=== PATIENT | male | born 1945 | race Caucasian/White ===

== ENCOUNTER 2017-07-16 21:07 | Inpatient (IN) | payer MEDICARE ==
[~2017-07-16 21:07] MED LIST: ISOVUE-370 76%-LOCM 1 ML ONE
[2017-07-16 22:08] LABS: Bilirubin Negative (Negative); Glucose, Urine (Dipstick) Negative (Negative); Ketone, Urine Negative (Negative); Nitrite Negative (Negative); Protein, Urine (Dipstick) > or equal to 300 mg/dL (Neg-Trace); Urobilinogen 0.2 mg/dL (0.2-1.0)
[2017-07-16 22:09] LABS: Blood, Urine Large (Negative)
[2017-07-16 22:18] LABS: #Eosinphils 0.1 thou/uL (0.0-0.7); #Monocytes 0.5 thou/uL (0.11-0.59); #Neutrophils 10.4 thou/uL (1.40-6.50); %Basophils 0.2 % (0.0-1.0); %Eosinophils 1.2 % (0.0-10.0); %Lymphocytes 8.4 % (21.0-51.0); %Monocytes 3.8 % (0.0-10.0); Hematocrit 41.4 % (42.0-52.0); Red Blood Cell (RBC) Count 4.36 mill/uL (4.70-6.10)
[2017-07-16 22:19] LABS: Bacteria/HPF None Seen HPF (None Seen); RBC/HPF GREATER THAN 50-TNTC HPF (0-3); Squamous Epithelial 0-3 HPF (0-3); WBC/HPF 0-3 HPF (0-3)
[2017-07-16 22:20] LABS: Hyaline Casts/LPF NONE SEEN LPF (0-3 Hyaline)
[2017-07-16 22:57] LABS: Anion Gap 14 mmol/L (10-20); BUN (Urea Nitrogen) 16 mg/dL (8.4-25.7); Calc. Creatinine Clearance 0 mL/min (70-130); Calcium 8.8 mg/dL (7.8-10.44); Carbon Dioxide 21 mmol/L (23-31); Chloride 104 mmol/L (98-107); Estimated GFR-MDRD 54
--- NOTE | 2017-07-16 23:30 | CT ---
CT ABDOMEN AND PELVIS WITH IV CONTRAST 07/16/17 HISTORY: Hematuria. FINDINGS: The lung bases are clear. The spleen is upper limits of normal in size. Gas containing stones are pre sent within the gallbladder lumen. There is calcification within the arterial structures. Fusiform ec hari of the lower abdominal aorta measures up to 2.7 cm AP diameter. Fat protrudes into each inguinal canal. A nonobstructive loop of sigmoid colon extends into the left inguinal canal. Urinary bladder contains a large amount of hyperdense material and a Paz catheter b alloon. IMPRESSION: 1. Hyperdense material within the urinary bladder lumen is likely related to hemorrhagic. Cause is not evident. Please consider urologic consultation. 2. Cholelithiasis. 3. Left inguinal hernia contains nonobstructed colon. 4. Atherosclerosis with fusiform ectasia of the lower abdominal aorta. POS: MENDEZ
[2017-07-17 00:47] LABS: Prothrombin Time 13.4 SEC (12.0-14.7)
[2017-07-17 00:48] LABS: PTT 33.3 SEC (22.9-36.1)
[2017-07-17] MEDS ORDERED: Acetaminophen 325 MG TAB PO PRN (03:36)
[2017-07-17] MEDS ORDERED: Ondansetron HCl/PF 4 MG/2 ML Vial IVP PRN ×2 (03:36→21:30)
[2017-07-17] MEDS ORDERED: Ondansetron ODT 4 MG TAB SL PRN (03:36)
[2017-07-17] MEDS ORDERED: Labetalol HCl 100 MG/20 ML VIAL SLOW IVP PRN (03:48)
[2017-07-17] MEDS ORDERED: Nitroglycerin 0.4 MG TAB (25 Tab Bottle) SL PRN (03:48)
[2017-07-17] MEDS ORDERED: hydrALAZINE 20 MG/ML VIAL SLOW IVP PRN (03:48)
[2017-07-17 05:01] VITALS: BMI 23.8
--- NOTE | 2017-07-17 07:51 | RAD ---
EXAM: ONE VIEW CHEST: COMPARISON: 12/14/16. HISTORY: Hypertensive urgency. FINDINGS: Normal cardiac silhouette. Pulmonary vessels and hilum are normal. Costophrenic angles are clear. No consolidation or mass. No pneumothorax or osseous abnormalities. IMPRESSION: No acute cardiopulmonary process. POS: MENDEZ
[2017-07-17] MEDS: Metoprolol Tartrate 25 MG TAB PO SCH (08:16)
[2017-07-17] MEDS: Lisinopril 20 MG TAB PO SCH (08:16)
[2017-07-17] MEDS: Nicotine 21 MG PATCH TD SCH (08:16)
[2017-07-17] MEDS: NIFEdipine XL 60 MG TAB PO SCH (08:16)
--- NOTE | 2017-07-17 09:38 | HP-2 ---
DATE OF ADMISSION: 07/17/2017 PRIMARY CARE PHYSICIAN: None. ATTENDING: Dr. Zendejas. RESIDENT: Dr. Orellana. HISTORIAN: Self. CHIEF COMPLAINT: Blood in urine. HISTORY OF PRESENT ILLNESS: A 71-year-old male with past medical history of coronary artery disease, hypertension, and hyperlipidemia, who presented to the ED because he was at work driving a truck and after work went to the bathroom and a lot of blood came out in his urine. It was not painful and he did not have to strain. He has never had blood in his urine before. He had no trauma to his penis, scrotum, or urethra. He has had no abdominal pain or back pain. No fevers or chills. No history o f kidney disease. When he got to the emergency room, he started having difficulty urinating and they put a Paz in and put out about 400 mL of urine that was grossly bloody with clots in it. EMS gave him 10 mg of labetalol for elevated blood pressures. PAST MEDICAL HISTORY: 1. Coronary artery disease, status post NSTEMI in 11/2016. 2. Hypertension. 3. Hyperlipidemia. PAST SURGICAL HISTORY: Cardiac catheterization, 11/2016. ALLERGIES: No known drug allergies. MEDICATIONS: Aspirin 81 mg daily. FAMILY HISTORY: Dad, coronary artery disease. SOCIAL HISTORY: He smokes cigarettes 1 pack per day for 30 years. Denies alcohol or drug use. REVIEW OF SYSTEMS: General: Denies fever, chills, weight changes. Eyes: Denies vision changes or eye pain. ENT: Denies rhinorrhea or sore throat. Respiratory: Positive for cough. Negative for s hortness of breath. Cardiovascular: Negative for chest pain or edema. GI: Negative for nausea, vo miting, constipation, abdominal pain. Genitourinary: Negative for incontinence, dysuria, polyuria. Skin: Negative for rashes or lesions. Musculoskeletal: Negative for pain or tenderness. Neurolog ic: Negative for weakness or numbness. Psychiatric: Negative for anxiety or depression. PHYSICAL EXAMINATION: VITAL SIGNS: Blood pressure 203/81, at its highest it was 259/102; pulse 65; respiratory rate 16; te mperature 97.7; pulse ox 97% on room air. Current weight 63.5 kilograms. GENERAL: Alert, oriented x3, in no acute distress. Thin, appropriately interactive. HEENT: Pupils equal, round, reactive to light. Extraocular muscles intact. Conjunctivae within nor mal limits. ENT: Nasal mucosa within normal limits. Extremely poor dentition with extensive dental caries. NECK: Supple, no lymphadenopathy. CARDIAC: Regular rate and rhythm. No murmurs, gallops. A 2+ radial and pedal pulses. LUNGS: Normal effort, no retractions, clear to auscultation bilaterally. SKIN: Warm, dry. No cyanosis or lesions. ABDOMEN: Soft, mildly tender to palpation in the suprapubic and right upper quadrant. No guarding o r rebound. Normoactive bowel sounds. No mass or distention. EXTREMITIES: No clubbing, cyanosis, or edema. MUSCULOSKELETAL: Structure, tone within normal limits, 5/5 muscle strength. Full range of motion. NEUROLOGICAL: No focal deficits. Sensation within normal limits. GCS 15. PSYCHIATRIC: Appropriate. LABORATORY DATA: WBC 12, hemoglobin 13.8, hematocrit 41.4, platelets 397, MCV 95. Sodium 135, potas sium 3.5, chloride 104, CO2 of 21, BUN 16, creatinine 1.3, GFR 54, glucose 187, calcium 8.8. Urinaly sis showed large blood, greater than 300 protein and red blood cells are too numerous to count. IMAGING: Abdomen and pelvis CT showed urinary bladder that contains a large amount of material that is likely hemorrhagic, cholelithiasis, left inguinal hernia, contains nonobstructive colon, atheroscl erosis of the abdominal aorta. ASSESSMENT AND PLAN: This is a 71-year-old male, who presents with: 1. Gross hematuria, unsure of the cause, but concerns for malignancy. We will continue Paz. We w ill consult Urology. 2. Hypertensive urgency. The patient has labile blood pressures. Most elevated blood pressure was 259/102. We will restart medications. After his rla-KE-qdhyhkeod myocardial infarction, we will giv e hydralazine, labetalol as needed to keep blood pressures less than 180 systolic. We will monitor o n telemetry. We will get a repeat EKG and we will get a chest x-ray. 3. Hyperglycemia. No diagnosis of diabetes. We will check fasting glucose in the a.m., and if elev ated, we will check A1c. 4. Leukocytosis, mild, could be reactive. We will monitor. 5. Normocytic anemia, likely secondary to blood loss. We will monitor with a.m. CBC. We will keep Paz in place. We will monitor urine output. Recheck sooner if concern for amount of bleeding. Th e patient asymptomatic currently. 6. Coronary artery disease. We will hold aspirin, as patient is currently bleeding. 7. Hypertension. We will restart medications from prior admission. 8. Hyperlipidemia. We will restart medications from prior admission. 9. Chronic kidney disease, stage 3. We will monitor. 10. Tobacco abuse. Nicoderm patch and counseling. 11. Lost to followup. We will consult case management to help find PCP for outpatient followup. 12. Venous thromboembolism prophylaxis, sequential compression devices, as the patient is bleeding. DISPOSITION: Admit to telemetry. Symptomatic medication will be provided. History and physical exam as well as management discussed with Dr. Zendejas.
--- NOTE | 2017-07-17 11:27 | PDOC.EVN ---
Attending Addendum - Attending Addendum I personally evaluated the patient and discussed the management with Dr. Orellana. I agree with the History, Examination, Assessment and Plan documented in her H& P with any addition or exceptions noted below. Patient with no known history of bladder or system issues presenting with munir hematuria with urination that has progressed even with de la torre catheter insertion. He is on no medications that would delay or impair clotting such as ASA or OAC. He does have an extensive smoking history and certainly a malignancy is a concern due to the painless nature of the issue. His kidneys appear normal on CT and there are no RBC casts in urine to suggest a nephritic syndrome or other kidney related issue. Will consult Urology for likely bladder irrigation and cystoscopy. His blood counts are currently stable but will need monitoring more frequently if he continues to pass blood in de la torre catheter. Patient also supposed to be on anti-HTN regimen outpatient that he has not been taking. His BP is improved on those medications, but they will need titrating prior to discharge. Await further recs from urology.
[2017-07-17] MEDS ORDERED: Ibuprofen 600 MG TAB PO PRN (17:08)
--- NOTE | 2017-07-17 17:12 | EKG ---
Test Reason : Blood Pressure : / mmHG Vent. Rate : 056 BPM Atrial Rate : 056 BPM P-R Int : 138 ms QRS Dur : 086 ms QT Int : 452 ms P-R-T Axes : 055 -32 -79 degrees QTc Int : 436 ms Sinus bradycardia Left axis deviation Abnormal ECG When compared with ECG of 16-JUL-2017 21:12, (Unconfirmed) Sinus rhythm has replaced Junctional rhythm T wave inversion now evident in Anterior leads Confirmed by MELLISA VIDES, DR. Lees ([id number]) on 07/17/2017 5:11:32 PM Referred By: MENG Confirmed By:DR. Nabeel PAK MD
[2017-07-17] MEDS: Acetaminophen 325 MG TAB PO PRN (17:41)
[2017-07-17] MEDS ORDERED: Atorvastatin Calcium 40 MG TAB PO SCH (21:00)
[2017-07-17] MEDS ORDERED: Fentanyl 100 MCG/2 ML VIAL ONE ×4 (21:12→23:27)
[2017-07-17] MEDS ORDERED: Propofol 200 MG/20 ML VIAL ONE (21:24)
[2017-07-17] MEDS ORDERED: Lidocaine 1% PF 5 ML VIAL ONE (21:24)
[2017-07-17] MEDS ORDERED: PHENYLEPHRINE-NS 100 MCG/ML 10 ML SYRINGE ONE (21:24)
[2017-07-17] MEDS ORDERED: ePHEDrine/0.9% NaCl/PF SYRINGE 50 mg/10 ml ONE (21:24)
[2017-07-18] MEDS: NIFEdipine XL 60 MG TAB PO SCH ×2 (00:04→09:50)
[2017-07-18] MEDS: Lisinopril 20 MG TAB PO SCH ×2 (00:05→09:50)
[2017-07-18] MEDS: Metoprolol Tartrate 25 MG TAB PO SCH ×2 (00:05→09:50)
--- NOTE | 2017-07-18 00:26 | CON ---
DATE OF CONSULTATION: 07/17/2017 REASON FOR CONSULTATION: Gross hematuria. HISTORY OF PRESENT ILLNESS: Mr. Holley is a 71-year-old gentleman who presented to the hospital with acute onset of gross hematuria. It was painless. He was seen in the emergency room and a catheter w as placed. He had dark red urine draining. He has no prior history of hematuria. He does have some daytime urinary frequency, but denies any history of dysuria. He has no prior urologic history. He was recently in the hospital in 11/2016 at [facility] for a non-ST elevation NE. He was maximized on medical therapy. He also has a history of hypertension, but he has not bee n taking his antihypertensive medications. PAST MEDICAL HISTORY: Hypertension, myocardial infarction, hyperlipidemia. PAST SURGICAL HISTORY: Cardiac catheterization, 12/16; appendectomy many years ago. ALLERGIES: No known drug allergies. MEDICATIONS: Taken at this time, aspirin. He was also supposed to be taking some antihypertensives, which he has not been taking. FAMILY HISTORY: Significant for coronary artery disease in his father. SOCIAL HISTORY: He denies alcohol or drug use. He does smoke 1 pack of cigarettes per day. He is m arried, but his and his daughter were with him. REVIEW OF SYSTEMS: Respiratory: Denies any shortness of breath. Cardiovascular: Denies chest pain or palpitations. G astrointestinal: Denies chronic constipation or diarrhea. Genitourinary: Please see history of pre sent illness. Musculoskeletal: Negative for pain or tenderness. Neurologic: Negative for weakness or numbness. Psychiatric: Negative for anxiety or depression. PHYSICAL EXAMINATION: GENERAL: He is awake and alert. He is in no distress at this time. VITAL SIGNS: Most recent vitals, temperature 97.5, pulse 70, blood pressure 159/72, respiratory rate 17, O2 saturation 96%. HEENT: Normocephalic, atraumatic. NECK: Supple, without masses. CHEST: Clear to auscultation. CARDIOVASCULAR: No murmurs. ABDOMEN: Soft, nontender, no palpable masses. Liver and spleen are not palpable. No abdominal tend erness noted. GENITOURINARY: He has a Paz catheter in place. Scrotum normal. Testicles palpably normal. EXTREMITIES: No edema. Hand irrigation of Paz catheter was performed. He did not tolerate this well secondary to bladder spasm. Clots were obtained but could not be cleared. CT scan on 07/16/2017 demonstrates bilateral inguinal hernias, no renal masses noted and density in t he bladder consistent with clot and/or tumor. LABORATORY DATA: Hemoglobin 13.8, hematocrit 41.1, platelet count 397. Sodium 135, potassium 3.5, c hloride 104, CO2 of 21, BUN 16, creatinine 1.3, glucose 197, calcium 8.8. Urinalysis: No bacteria s een. Large amount of blood. IMPRESSION: Mr. Holley is a 71-year-old gentleman with urinary clot retention. He has a long history of smoking. I was unable to clear his bladder by hand irrigation. In addition, this is quite uncom fortable for him and poorly tolerated. I recommended cystoscopic evaluation with clot evacuation and possible transurethral resection bladder tumor. The procedure, potential complications, limitations , alternatives have been discussed with him, his , and his daughter. They understand the risks a nd potential complications and wishes to proceed. PLAN: Cystoscopy, clot evacuation, possible TURBT.
--- NOTE | 2017-07-18 04:23 | OP ---
DATE OF PROCEDURE: 07/17/2017 PREOPERATIVE DIAGNOSIS: Gross hematuria, clot retention. POSTOPERATIVE DIAGNOSIS: Gross hematuria, clot retention. PROCEDURE: Cystoscopy, clot evacuation, TURP. SURGEON: Dr. Brad Napier ANESTHESIA: General. INDICATIONS: Mr. Holley is a 71-year-old gentleman who presented to the emergency room with acute ons et of gross hematuria. He developed clot retention. Attempts were made to clear the bladder with suárez nd irrigation and this was unsuccessful. He was therefore brought to the operating room for further evaluation and management. DETAILS OF PROCEDURE: The patient was given general anesthesia and IV antibiotics. He was sterilely prepped and draped in lithotomy position. The anterior urethra was dilated with sequential sounds a nd cystoscope was passed into the bladder. Cystoscopy demonstrated a large amount of organized clot. It was irrigated from the bladder with the Ellik evacuator. Repeat cystoscopy after clot evacuatio n revealed no evidence of bladder tumor. There was an enlarged median lobe with irregularity of the mucosa consistent with benign prostatic hypertrophy versus transitional cell carcinoma. Transurethra l resection of this portion of the prostate was performed. Hemostasis was obtained. Specimen was se nt for pathologic evaluation. The bladder was examined and there is no evidence of injury to the ure teral orifices. There was no residual prostate chips left. There was no blood seen coming from eith er the right or the left ureteral orifice. It appears the bleeding was most likely from the prostate, the tissue has been sent for pathologic ev aluation. I plan to leave him on continuous bladder irrigation overnight and then it can be discontinued and th e patient can be discharged home if the urine is clear off continuous bladder irrigation. He can be taught how to remove the Paz catheter by cutting the balloon port prior to discharge and remove his catheter on Friday morning. Otherwise, he can present to our office on Friday and we will remove th e catheter for him. ESTIMATED BLOOD LOSS: Minimal. COMPLICATIONS: None.
[2017-07-18 05:40] LABS: #Eosinphils 0.1 thou/uL (0.0-0.7); #Lymphocytes 1.2 thou/uL (1.20-3.40); #Monocytes 0.5 thou/uL (0.11-0.59); #Neutrophils 11.3 thou/uL (1.40-6.50); %Basophils 0.2 % (0.0-1.0); %Eosinophils 0.6 % (0.0-10.0); %Lymphocytes 8.9 % (21.0-51.0); %Monocytes 3.8 % (0.0-10.0); Hematocrit 40.2 % (42.0-52.0); Mean Platelet Volume 8.1 fL (7.4-10.4); Red Blood Cell (RBC) Count 4.08 mill/uL (4.70-6.10); White Blood Cell (WBC) Count 13.1 thou/uL (4.8-10.8)
[2017-07-18 05:49] LABS: Anion Gap 10 mmol/L (10-20); BUN (Urea Nitrogen) 20 mg/dL (8.4-25.7); Calc. Creatinine Clearance 55 mL/min (70-130); Calcium 8.5 mg/dL (7.8-10.44); Carbon Dioxide 24 mmol/L (23-31); Chloride 104 mmol/L (98-107); Estimated GFR-MDRD 57
[2017-07-18 06:58] LABS: Hemoglobin A1c 5.7 % (4.0-6.0)
--- NOTE | 2017-07-18 08:23 | PDOC.FM ---
- Subjective Subjective: Pt doing well this morning. Denies any acute events overnight. Denies any fevers or chills. Denies any nausea, vomiting, diarrhea, constipation. Pt pain being well controlled. Nurse states he had some spasms early after surgery yesterday. Got some tylenol and fell asleep and nurse never got any more complaints. - Objective MAR Reviewed: Yes Vital Signs & Weight: Vital Signs (12 hours) Temp Pulse Resp BP BP Pulse Ox 07/18/17 08:00 96.2 F L 60 16 146/70 H 98 07/18/17 04:00 97.4 F L 53 L 18 142/67 H 98 07/18/17 00:12 98.6 F 74 20 98 07/18/17 00:05 163/75 H 07/18/17 00:04 67 163/75 H Weight Weight 72.257 kg I&O: 07/17/17 07/18/17 07/19/17 06:59 06:59 06:59 Intake Total 240 480 Output Total 300 820 Balance -60 340 Result Diagrams: 07/18/17 04:38 07/18/17 04:38 Radiology Reviewed by me: Yes Radiology: CT abdo/pelvis: 1. Hyperdense material w/n the urinary bladder lumen is likely related to hemorrhagic. Cause is not evident. Please consider urologic consultation. 2. Cholelithiasis. 3. Left inguinal hernia contains nonobstructed bowel 4. Atherosclerosis w/ fusiform ectasia of lower abdominal aorta. <Bhavik Nuñez - Last Filed: 07/18/17 08:20> - Objective Vital Signs & Weight: Vital Signs (12 hours) Temp Pulse Resp BP BP Pulse Ox 07/18/17 08:00 96.2 F L 60 16 146/70 H 98 07/18/17 04:00 97.4 F L 53 L 18 142/67 H 98 07/18/17 00:12 98.6 F 74 20 98 07/18/17 00:05 163/75 H 07/18/17 00:04 67 163/75 H Weight Weight 72.257 kg I&O: 07/17/17 07/18/17 07/19/17 06:59 06:59 06:59 Intake Total 240 480 Output Total 300 820 Balance -60 -340 Result Diagrams: 07/18/17 04:38 07/18/17 04:38 <Boo Zendejas - Last Filed: 07/18/17 11:43> Phys Exam - Physical Examination HEENT: moist MMs, oral pharynx no lesions Neck: no nodes, no JVD, supple Respiratory: no rales, no rhonchi, wheezing present Some expiratory wheezes noted Cardiovascular: RRR, no significant murmur, no rub Gastrointestinal: soft, non-tender, no distention, positive bowel sounds Musculoskeletal: no edema Neurological: non-focal, normal sensation, moves all 4 limbs Lymphatic: no nodes Psychiatric: normal affect, A&O x 3 Skin: no rash <SemajlindsayBhavik - Last Filed: 07/18/17 08:20> Dx/Plan (1) Gross hematuria Status: Acute Plan: Urology consulted- Dr. Napier. Will follow recommendations -Had cystoscopy yesterday w/ TURP. Specimen spent for pathology. BPH vs TCC -Bladder irrigation discontinued. Urine in de la torre clear at this time. No sign of bleeding. -Possibly can be D/c if no sign of bleeding. Will keep de la torre in. -Will f/u in office friday. (2) Hypertensive urgency Code(s): I16.0 - HYPERTENSIVE URGENCY Status: Acute Plan: -Pt was not taking any of his BP medications on admission. -Restarted medicine upon visit. -BP has lowered. No need for medicine adjustment at this time. Asx. -Will need outpt followup. (3) Normocytic anemia due to blood loss Code(s): D50.0 - IRON DEFICIENCY ANEMIA SECONDARY TO BLOOD LOSS (CHRONIC) Status: Acute Plan: -Likely due to hematuria. -Bleeding resolved. Will continue to monitor and tx as needed. (4) Leukocytosis Code(s): D72.829 - ELEVATED WHITE BLOOD CELL COUNT, UNSPECIFIED Status: Acute Plan: -WBC count elevated from yesterday. -Likely stress response from surgery. (5) HLD (hyperlipidemia) Code(s): E78.5 - HYPERLIPIDEMIA, UNSPECIFIED Status: Acute Plan: -continued home meds (6) CKD (chronic kidney disease) stage 3, GFR 30-59 ml/min Code(s): N18.3 - CHRONIC KIDNEY DISEASE, STAGE 3 (MODERATE) Status: Chronic Plan: -Likely due to hypertension -Cr normal. -Will continue to monitor. (7) Hyperglycemia Code(s): R73.9 - HYPERGLYCEMIA, UNSPECIFIED Status: Acute Plan: Blood sugar elevated at 206. No hx of diabetes. -Will check a Hgb A1c at this time. -Will need out patient follow up. <Bhavik Nuñez - Last Filed: 07/18/17 08:20> Attending Addendum - Attending Addendum I personally evaluated the patient and discussed the management with Dr. Nuñez. I agree with the History, Examination, Assessment and Plan documented above with any addition or exceptions noted below. Patient with no further bleeding after TURP yesterday with Urology. Patient will follow up pathology in outpatient setting when De La Torre removed in clinic on Friday. He is doing well and has no complaints. If no blood in de la torre this afternoon, will be d/c'd home. His BP is much better today on his prescribed regimen. He has been counselled that he needs BP meds daily to prevent further heart disease. <Boo Zendejas - Last Filed: 07/18/17 11:43>
[2017-07-18 16:13] VITALS: BP 139/65; TEMP 97.7
[2017-07-18] MEDS: Nicotine 21 MG PATCH TD SCH (17:52)
[2017-07-18] MEDS: Acetaminophen 325 MG TAB PO PRN (18:27)
== END 2017-07-18 18:52 | disposition home or self-care (01) | DRG 713 ==
LOC: ERS 21:07 → 2SW 07-17 01:04 → 2NO 07-17 18:50
PROVIDERS: ADMIT Emergency Medicine; ATTEND Emergency Medicine
PROC: 0VB08ZZ Excision of Prostate, Via Natural or Artificial Opening Endoscopic (ICD-10-PCS; principal; 2017-07-17)
PROC: 0TCB8ZZ Extirpation of Matter from Bladder, Via Natural or Artificial Opening Endoscopic (ICD-10-PCS; 2017-07-17)
DX: N42.1 Congestion and hemorrhage of prostate (principal); D62 Acute posthemorrhagic anemia; N18.3 Chronic kidney disease, stage 3 (moderate); I12.9 Hypertensive chronic kidney disease with stage 1 through stage 4 chronic kidney disease, or unspecified chronic kidney disease; D72.828 Other elevated white blood cell count; N40.1 Benign prostatic hyperplasia with lower urinary tract symptoms; F17.210 Nicotine dependence, cigarettes, uncomplicated; R33.8 Other retention of urine; E78.5 Hyperlipidemia, unspecified; I25.10 Atherosclerotic heart disease of native coronary artery without angina pectoris; I25.2 Old myocardial infarction; I16.0 Hypertensive urgency; R73.9 Hyperglycemia, unspecified
CPT/HCPCS: 36415; 71010; 74177; 80048; 81003; 81015; 83036; 85025; 85610; 85730; 87086; 88305; 88341; 88342; 93005; 93010; A4216; J2001; J2704; J3010